=== PATIENT | female | born 1985 | race Caucasian/White ===

== ENCOUNTER 2023-09-01 22:16 | Emergency (ER) | payer BC, SELFPAY ==
[2023-09-01 22:17] VITALS: BP 126/84
[2023-09-01 22:32] LABS: % Basophils 0.9 % (0-2); % Eosinophils 1.5 % (0-6); % Immature Granulocytes 0.3 % (0-0.5); % Lymphocytes 37.9 % (20.5-51.1); % Monocytes 7.4 % (1.7-9.3); Absolute Basophils 0.1 10^3/uL (0-0.2); Absolute Eosinophils 0.1 10^3/uL (0-0.7); Absolute Lymphocytes 2.5 10^3/uL (1.2-3.4); Absolute Monocytes 0.5 10^3/uL (0.1-0.6); Absolute Neutrophils 3.5 10^3/uL (1.4-6.5); Hematocrit 32.9 % (37.0-47.0); Hemoglobin 10.4 g/dL (12.0-16.0); Mean Corp Hgb Conc. 31.6 g/dL (33.0-37.0); Mean Corpuscular Hgb 19.4 pg (27.0-31.0); Mean Corpuscular Volume 61.5 fL (81.0-99.0); Mean Platelet Volume 9.6 fL (7.4-10.4); Nucleated Red Blood Cells % 0 %; Platelet Count 256 10^3/uL (130-400); Red Blood Cell Count 5.35 10^6/uL (4.20-5.40); Red Cell Dist. Width 16.9 % (11.5-14.5); White Blood Cell Count 6.6 10^3/uL (4.8-10.8)
[2023-09-01 22:42] LABS: HCG, Serum Qualitative Screen Negative
[2023-09-01 22:45] LABS: ALT (SGPT) < 10 U/L (0-35); AST (SGOT) 16 U/L (14-36); Albumin 4.1 g/dl (3.5-5.0); Alkaline Phosphatase 45 U/L (38-126); Blood Urea Nitrogen 16 mg/dl (7-17); Calcium 9.5 mg/dl (8.4-10.2); Carbon Dioxide 25 mmol/L (22-30); Chloride 108 mmol/L (98-107); Glucose 106 mg/dl (70-99); Potassium 4.5 mmol/L (3.5-5.1); Sodium 136 mmol/L (135-145); Total Bilirubin 0.7 mg/dl (0.2-1.3); Total Protein 6.7 g/dl (6.3-8.2); eGFR > 60.00
[2023-09-02 00:46] VITALS: BP 119/69
[2023-09-02 00:47] VITALS: BMI 23.5
--- NOTE | 2023-09-02 00:55 | ED.GENMED ---
History of Present Illness
General
Chief Complaint: Abdominal Pain
Source: patient
Exam Limitations: none
Time Seen by Provider: 09/02/23 00:24
Nursing documentation reviewed up to this point in time: agreed with
Travel History
Have you had any contact with someone who has COVID-19?: No
Do you have any symptoms of coronavirus? Fever > 100 degrees, chills, cough, shortness of breath, sore throat, loss of taste or smell, muscle aches, or headache?: No
History of Present Illness
History of Present Illness:
This is a 38-year-old woman who has prior history of ovarian cysts, rare in occurrence who complains of somewhat abrupt onset of right lower quadrant pain that began yesterday afternoon, intermittent twinges of moderate pain since then and seems
somewhat worse today thus she presented to urgent care and was sent to the ED for further evaluation. Pain feels somewhat similar to previous episodes of ovarian cyst however not as sharp and severe in onset as previously.
No accompanying symptoms, she denies fevers or chills, no nausea no vomiting, no diarrhea nor constipation. Patient states she has been moving her bowels normally and passed to normal bowel movements today.
Appetite has been good, no change in pain with meals. She denies dysuria urgency and or hematuria, no flank pain nor back pain.
She has not been taking anything for pain and currently pain is improved.
Last menstrual period August 18. Menses have been generally every 21 days. She denies risk of .
She takes no medicines on a daily basis.
Past History
Past History
ED Past Medical History: Other (Murmur, Beta Thalassemia, Anemia, ovarian cyst)
ED Past Surgical History: Other (LEEP; lumpectomy right breast, D and E)
Social History
Tobacco: Former smoker
Alcohol: None
Personal:
Living: with family
Employment: Not employed
Family History
Family History: Other (Noncontributory)
Phy Exam
Physical Exam
Physical Exam:
GENERAL: 38-year-old woman appears her stated age, bright and alert, pleasant, appears in no acute distress. Afebrile. is accompanying.
EYE: anicteric
NECK: Supple, nontender, no meningismus, no significant adenopathy.
ENT: oral mucosa is moist. No rhinorrhea.
CARDIAC: Regular rate and rhythm. no murmur.
LUNGS: Clear breath sounds bilaterally, no acute respiratory distress, no wheezes/rales/rhonchi
ABDOMEN: Soft, nondistended, very minimal tenderness right inferior periumbilical region with deep palpation only, no palpable masses, no abdominal wall defects, no organomegaly, no r/g, no cvat. normoactive BS.
NEUROLOGICAL: Alert and oriented x3, no focal neuro deficits. Gait is rose and steady.
SKIN: Warm and dry, normal color, skin intact. No rash.
MUSCULOSKELETAL: No C/C/E. peripheral pulses are full and equal b/l. No palpable tenderness.
PSYCH: Normal and appropriate interaction.
Course
Orders/Labs/Results
Orders:
Orders
09/01/23 22:21
Test Result ONCE
09/01/23 22:25
CMP [Comprehensive Metabolic Panel] Urgent
Complete Blood Count/With Diff Urgent
HCG, Serum Qualitative Screen Urgent
09/01/23 22:57
Pelvis (Non Obstetric) US [US Pelvis Only (non-obstetric)] Urgent
Comment:
Reason For Exam: RLQ ABDOMINAL PAIN
Abnormal Lab Results
09/01/23
22:25
Hgb 10.4 L g/dL
(12.0-16.0)
Hct 32.9 L %
(37.0-47.0)
MCV 61.5 L fL
(81.0-99.0)
MCH 19.4 L pg
(27.0-31.0)
MCHC 31.6 L g/dL
(33.0-37.0)
RDW 16.9 H %
(11.5-14.5)
Chloride 108 H mmol/L
(98-107)
Glucose 106 H mg/dl
(70-99)
09/01/23 22:25
09/01/23 22:25
Vital Signs
Initial and Last Documented VS:
Initial Vital Signs
Temp Pulse Resp BP Pulse Ox
98.3 F 76 18 126/84 100
09/01/23 22:17 09/01/23 22:17 09/01/23 22:17 09/01/23 22:17 09/01/23 22:17
Last Documented Vital Signs
Temp Pulse Resp BP Pulse Ox
98.3 F 76 18 119/69 100
09/01/23 22:17 09/01/23 22:17 09/01/23 22:17 09/02/23 00:46 09/02/23 00:47
MDM/Problems Addressed
Differential Diagnosis Includes:
Acute right lower quadrant pain for approximately 36 hours, intermittent, sharp and stabbing in nature.
Thus far labs are unremarkable showing mild but stable anemia, unremarkable chemistries, hCG is negative. Pelvic ultrasound
Is unremarkable, no evidence of ovarian cyst, good flow to both ovaries, no evidence of torsion, no appreciable free fluid.
We did discuss the possibility of potential early appendicitis, less likely UTI as patient has had no UTI symptoms. Other consideration is ureteric stone/renal colic.
We have discussed CT of the abdomen pelvis but patient admits that pain is overall improving and elects to hold off on further imaging.
Right lower quadrant pain may be bowel gas in nature, mild constipation, abdominal wall muscle strain.
It is reasonable to hold off on further imaging and give this 'tincture of time'
Patient has strong family support. She is able to follow-up with PCP versus [facility] for recheck.
We have also discussed prompt return if pain worsens, especially if persistent, if accompanied with fever, nausea vomiting or any other worrisome symptom.
Both she and her agree with this plan.
*Radiology
Radiology exam reviewed: radiology read reviewed
*Pulse Oximetry
Patient hypoxic: no
*Critical Care Note
Total Time (30-74mins, 75-104mins- exclusive of procedures): Not Applicable
Patient Management
Social determinants of health affecting care: Strong social support and Other (No concerns for outpatient follow-up)
ED Attending Note
-
Portions of this chart may have been created with voice recognition software.� Occasional wrong word or��sound alike� substitutions may have occurred due to the inherent limitations of voice recognition software.
Discharge Plan
Departure
Patient Disposition: Home (Routine Discharge)
Date of Disposition: 09/02/23
Time of Disposition: 00:56
Patient with high blood pressure during this ER visit?: No
Condition: Good
Discharge Problem:
Abdominal pain, acute, right lower quadrant
Instructions: Abdominal Pain
Prescriptions:
No Action
No Current Medications
0
Activity Restrictions/Additional Instructions:
You may take Tylenol versus ibuprofen as needed for discomfort.
Follow-up with your primary care physician versus handkerchief presser for recheck.
If pain worsens especially if accompanied with fever, nausea vomiting or any other worrisome symptom, prompt return to the ED for further evaluation.
Interventions
Interventions:
*Risk Screen - Suicide Last Done: 09/01/23 22:17
*General Assessment Last Done: 09/02/23 00:47
*Neglect/Abuse Screening Last Done: 09/01/23 22:17
ED- Fall Risk Assessment Last Done: 09/02/23 00:47
*ED COVID-19 Vaccine History Last Done: 09/02/23 00:47
BY-Xdpuvw-Ohgywdqxip Assessment Last Done: 09/02/23 00:47
Discharge Date and Time
Print Language: EMIRATI
== END 2023-09-02 01:07 | disposition home or self-care (01) ==
LOC: EMR 22:16
PROVIDERS: Student in an Organized Health Care Education/Training Program; EMERGENCY PHYSICIAN Emergency Medicine; FAMILY PHYSICIAN Nurse Practitioner Adult Health
DX: R10.31 Right lower quadrant pain (principal); D56.1 Beta thalassemia; D64.9 Anemia, unspecified; N83.209 Unspecified ovarian cyst, unspecified side; R01.1 Cardiac murmur, unspecified; Z87.891 Personal history of nicotine dependence; Z88.1 Allergy status to other antibiotic agents; Z88.3 Allergy status to other anti-infective agents; Z88.0 Allergy status to penicillin; Z91.048 Other nonmedicinal substance allergy status
CPT/HCPCS: 99284; 76856; 80053; 84703; 85025

== ENCOUNTER 2023-09-04 01:18 | Emergency (ER) | payer BC, SELFPAY ==
[2023-09-04 01:21] VITALS: BP 130/79
[2023-09-04 02:08] LABS: % Basophils 0.7 % (0-2); % Eosinophils 1.5 % (0-6); % Immature Granulocytes 0.3 % (0-0.5); % Lymphocytes 34.4 % (20.5-51.1); % Monocytes 9.1 % (1.7-9.3); Absolute Basophils 0.1 10^3/uL (0-0.2); Absolute Eosinophils 0.1 10^3/uL (0-0.7); Absolute Lymphocytes 2.3 10^3/uL (1.2-3.4); Absolute Monocytes 0.6 10^3/uL (0.1-0.6); Absolute Neutrophils 3.6 10^3/uL (1.4-6.5); Hemoglobin 10.9 g/dL (12.0-16.0); Mean Corp Hgb Conc. 32.1 g/dL (33.0-37.0); Mean Corpuscular Hgb 19.8 pg (27.0-31.0); Mean Corpuscular Volume 61.7 fL (81.0-99.0); Mean Platelet Volume 9.9 fL (7.4-10.4); Nucleated Red Blood Cells % 0 %; Platelet Count 250 10^3/uL (130-400); Red Blood Cell Count 5.51 10^6/uL (4.20-5.40); Red Cell Dist. Width 17.2 % (11.5-14.5); White Blood Cell Count 6.7 10^3/uL (4.8-10.8)
[2023-09-04 02:14] LABS: HCG, Serum Qualitative Screen Negative
[2023-09-04 02:20] LABS: ALT (SGPT) < 10 U/L (0-35); AST (SGOT) 17 U/L (14-36); Albumin 4.3 g/dl (3.5-5.0); Alkaline Phosphatase 44 U/L (38-126); Blood Urea Nitrogen 17 mg/dl (7-17); Carbon Dioxide 25 mmol/L (22-30); Chloride 108 mmol/L (98-107); Glucose 94 mg/dl (70-99); Potassium 4.2 mmol/L (3.5-5.1); Sodium 135 mmol/L (135-145); Total Bilirubin 0.6 mg/dl (0.2-1.3); Total Protein 6.9 g/dl (6.3-8.2); eGFR > 60.00
--- NOTE | 2023-09-04 02:50 | ED.GENMED ---
History of Present Illness
<Dinh Marcus PA-C - Last Filed: 09/05/23 18:32>
General
Chief Complaint: Abdominal Pain
Time Seen by Provider: 09/04/23 01:31
Travel History
Have you had any contact with someone who has COVID-19?: No
Do you have any symptoms of coronavirus? Fever > 100 degrees, chills, cough, shortness of breath, sore throat, loss of taste or smell, muscle aches, or headache?: No
History of Present Illness
History of Present Illness:
38-year-old female presents to the emergency department for evaluation of worsening right lower quadrant pain. She was seen in this emergency department 2 days ago for similar complaint, at that time an ultrasound performed that was unremarkable.
There was a discussion during that visit about the potential benefit of a CT scan however the patient declined as she did not want to undergo the ionizing radiation. States she did well yesterday but today abruptly noticed worsening of pain. On
the ride to the emergency department noticed that any bump in the road worsened her pain severely. Denies any chest pain. The pain radiates to the right upper quadrant. No history of intra-abdominal surgeries. No lower urinary tract voiding
symptoms.
Past History
<Dinh Marcus PA-C - Last Filed: 09/05/23 18:32>
Past History
ED Past Medical History: Other (Murmur, Beta Thalassemia, Anemia, ovarian cyst)
ED Past Surgical History: Other (LEEP; lumpectomy right breast, D and E)
Social History
Tobacco: Former smoker
Alcohol: None
Personal:
Living: with family
Employment: Not employed
Family History
Family History: Other (Noncontributory)
Review of Systems
<Dinh Marcus PA-C - Last Filed: 09/05/23 18:32>
Review of Systems
Allergies reviewed?: Yes
All Other Systems: ROS reviewed and negative except as documented in HPI and ROS
Phy Exam
<Dinh Marcus PA-C - Last Filed: 09/05/23 18:32>
Physical Exam
Physical Exam:
GEN: Well appearing, NAD, WDWN
HEENT: Oral mucosa moist, no scleral icterus
Cardiac: Regular rate
Lung: No respiratory distress, no tachypnea
Abdomen: Soft, nontender, variable right lower quadrant tenderness without specific focal point, no rigidity or peritoneal signs
MSK: No gross deformity or injuries
Skin: Good color, no pallor or jaundice. Urticarial rash across the anterior abdomen, no petechial lesions, no purpura, no vesicles
Neuro: AO x3, moves all extremities freely
Psych: Calm, cooperative
Course
<Dinh Marcus PA-C - Last Filed: 09/05/23 18:32>
Orders/Labs/Results
Orders:
Orders
09/04/23 01:41
CT Abd/Pel (IV only)-[facility] only Urgent
Comment:
Reason For Exam: RLQ pain
Test Result ONCE
09/04/23 01:58
Complete Blood Count/With Diff Urgent
Comprehensive Metabolic Panel Urgent
HCG, Serum Qualitative Screen Urgent
Abnormal Lab Results
09/04/23
01:58
RBC 5.51 H 10^6/uL
(4.20-5.40)
Hgb 10.9 L g/dL
(12.0-16.0)
Hct 34.0 L %
(37.0-47.0)
MCV 61.7 L fL
(81.0-99.0)
MCH 19.8 L pg
(27.0-31.0)
MCHC 32.1 L g/dL
(33.0-37.0)
RDW 17.2 H %
(11.5-14.5)
Chloride 108 H mmol/L
(98-107)
09/04/23 01:58
09/04/23 01:58
Vital Signs
Initial and Last Documented VS:
Initial Vital Signs
Temp Pulse Resp BP Pulse Ox
98.4 F 86 16 130/79 100
09/04/23 01:21 09/04/23 01:21 09/04/23 01:21 09/04/23 01:21 09/04/23 01:21
Last Documented Vital Signs
Temp Pulse Resp BP Pulse Ox
98.3 F 77 17 121/64 99
09/04/23 05:08 09/04/23 05:08 09/04/23 05:08 09/04/23 05:08 09/04/23 05:08
<Shea Mcguire, DO - Last Filed: 09/04/23 05:17>
Orders/Labs/Results
Orders:
Orders
09/04/23 01:41
CT Abd/Pel (IV only)-[facility] only Urgent
Comment:
Reason For Exam: RLQ pain
Test Result ONCE
09/04/23 01:58
Complete Blood Count/With Diff Urgent
Comprehensive Metabolic Panel Urgent
HCG, Serum Qualitative Screen Urgent
Abnormal Lab Results
09/04/23
01:58
RBC 5.51 H 10^6/uL
(4.20-5.40)
Hgb 10.9 L g/dL
(12.0-16.0)
Hct 34.0 L %
(37.0-47.0)
MCV 61.7 L fL
(81.0-99.0)
MCH 19.8 L pg
(27.0-31.0)
MCHC 32.1 L g/dL
(33.0-37.0)
RDW 17.2 H %
(11.5-14.5)
Chloride 108 H mmol/L
(98-107)
09/04/23 01:58
09/04/23 01:58
Vital Signs
Initial and Last Documented VS:
Initial Vital Signs
Temp Pulse Resp BP Pulse Ox
98.4 F 86 16 130/79 100
09/04/23 01:21 09/04/23 01:21 09/04/23 01:21 09/04/23 01:21 09/04/23 01:21
Last Documented Vital Signs
Temp Pulse Resp BP Pulse Ox
98.3 F 77 17 121/64 99
09/04/23 05:08 09/04/23 05:08 09/04/23 05:08 09/04/23 05:08 09/04/23 05:08
<Dinh Marcus PA-C - Last Filed: 09/05/23 18:32>
MDM/Problems Addressed
MDM/Problems Addressed:
Labs unremarkable. Signed out to Dr Mcguire pending CT
<DO Asia Pride Last Filed: 09/04/23 05:17>
*Radiology
Radiology exam reviewed: radiology read reviewed
*Pulse Oximetry
Patient hypoxic: no
*Critical Care Note
Total Time (30-74mins, 75-104mins- exclusive of procedures): Not Applicable
ED Attending Note
<Dinh Marcus PA-C - Last Filed: 09/05/23 18:32>
-
Portions of this chart may have been created with voice recognition software.� Occasional wrong word or��sound alike� substitutions may have occurred due to the inherent limitations of voice recognition software.
<DO Asia Pride Last Filed: 09/04/23 05:17>
ED Attending Note
Patient seen and examined by attending physician: Yes
I performed a history and physical exam of patient and discussed management with resident, I reviewed resident's note and agree with documented findings and plan of care.: Yes
ED Attending Note:
38-year-old woman returns to the ED with continued right lower quadrant pain, somewhat worse tonight.
Several complaint bringing her to the ED 2 days ago with unremarkable ED evaluation including unremarkable laboratory studies, unremarkable pelvic ultrasound. At that time we discussed CT but she was feeling improved and elected to go home.
With worsening pain tonight she returned to the ED and is noted to have mild tenderness with deep palpation right lower quadrant as well as mild tenderness right mid abdomen. No rebound or guarding.
Labs are again reassuring, unremarkable.
CT shows normal appendix, no obstructing stone, no bowel obstruction. Gallbladder is decompressed. Right ovarian corpus luteum with small amount of free fluid in the pelvis reflecting recent ovulation. Right lower quadrant pain could certainly be
related to recent ovarian cyst rupture.
Ultrasound from 2 days ago reassuring with normal flow to the ovaries.
Recommend supportive measures, Tylenol versus ibuprofen as needed for discomfort, local heat and prompt follow-up with [facility] for recheck.
Return precautions discussed.
Discharge Plan
Departure
Patient Disposition: Home (Routine Discharge)
Date of Disposition: 09/04/23
Time of Disposition: 05:06
Patient with high blood pressure during this ER visit?: No
Condition: Good
Discharge Problem:
Abdominal pain, acute, right lower quadrant, Rupture of cyst of right ovary
Instructions: Ovarian Cyst (DC)
Prescriptions:
No Action
dextroamphetamine-amphetamine [Adderall] 10 mg Tablet
10 mg PO TID
Referrals:
PRIVATE,PHYSICIAN [Family Provider] - Call in 1-3 days for appt
Interventions
Interventions:
*Risk Screen - Suicide Last Done: 09/04/23 01:21
*General Assessment Last Done: 09/04/23 01:59
*Neglect/Abuse Screening Last Done: 09/04/23 01:21
ED- Fall Risk Assessment Last Done: 09/04/23 01:59
*ED COVID-19 Vaccine History Last Done: 09/04/23 01:21
*Nursing Disposition Last Done: 09/04/23 05:26
MC-Arwpze-Rfjxckpdhc Assessment Last Done: 09/04/23 01:59
Discharge Date and Time
Discharge Date/Time: 09/04/23 05:29
Print Language: NAURUAN
[2023-09-04 05:08] VITALS: BP 121/64
== END 2023-09-04 05:29 | disposition home or self-care (01) ==
LOC: EMR 01:18
PROVIDERS: Physician Assistant; EMERGENCY PHYSICIAN Emergency Medicine
DX: R10.31 Right lower quadrant pain (principal); N83.201 Unspecified ovarian cyst, right side; Z87.891 Personal history of nicotine dependence
CPT/HCPCS: 99285; 74177; 80053; 84703; 85025; Q9967